=== PATIENT | male | born 1970 | race Caucasian/White ===

== ENCOUNTER 2016-11-25 23:49 | Emergency (ER) | payer SELFPAY ==
[2016-11-26] MEDS ORDERED: HYDROcodone/Acetaminophen 10/325 mg Tablet ONE (00:24)
[2016-11-26] MEDS ORDERED: Cephalexin 500 MG CAP ONE (00:25)
[2016-11-26] MEDS ORDERED: Sulfameth/Trimethoprim DS 800-160mg TAB ONE (00:25)
[2016-11-26] MEDS ORDERED: Oxymetazoline HCl 0.05% ( 15 ML ) ONE (00:25)
[2016-11-26] MEDS ORDERED: Naproxen 500 MG TAB ONE (00:25)
--- NOTE | 2016-11-26 01:08 | PICIS ---
[facility] EMERGENCY RECORD TRIAGE (TueNov 26, 2016 00:02 MHEB) TRIAGE NOTES: RIGHT NARES PAIN. (TueNov 26, 2016 00:02 MHEB) PATIENT: NAME: Rick Morales, AGE: 45, GENDER: male, : Tue1970, TIME OF GREET: TueNov 25, 2016 23:50, PREFERRED LANGUAGE: Kittitian, ETHNICITY: Not or , ECODE BILLING MAP: [facility], SSN: [id number], Zip Code: [address], KG WEIGHT: 83.91, PHONE: , , , PERSON ID: [id number], PCP: NONE. (TueNov 26, 2016 00:02 MHEB) COMPLAINT: NASAL PAIN. (TueNov 26, 2016 00:02 MHEB) ADMISSION: URGENCY: 5 Fast Track, ADMISSION SOURCE: Home, TRANSPORT: Walk-in, BED: TRIAGE. (TueNov 26, 2016 00:02 MHEB) ASSESSMENT: Assessment: SWELLING TO RIGHT SIDE OF NOSE, Symptoms began 11/23/2016 00:03. (00:03 MHEB) IMMUNIZATIONS: Flu vaccine not up to date, Tetanus not up to date. (00:03 MHEB) SIRS SCORING: Heart Rate 55-109 (0), Temp range 96.8-101.1 (0), respiratory rate 12-24 (0), Mental Status altered: no (0). (00:03 MHEB) TRIAGE SCREENING: Patient denies suicidal ideation, Patient denies presence of domestic violence. (00:03 MHEB) PROVIDERS: TRIAGE NURSE: Dunia Ye RN. (TueNov 26, 2016 00:02 MHEB) VITAL SIGNS: BP 140/90, Pulse 91, Resp 18, Temp 97.8, (Tympanic), Pain 10, O2 Sat 98, on Room Air, Time 11/26/2016 00:00. (00:00 MHEB) KNOWN ALLERGIES NKDA CURRENT MEDICATIONS No recorded medications VITAL SIGNS (00:00 MHEB) VITAL SIGNS: BP: 140/90, Pulse: 91, Resp: 18, Temp: 97.8 (Tympanic), Pain: 10, O2 sat: 98 on Room Air, Time: 11/26/2016 00:00. NURSING ASSESSMENT: ENT (00:05 MHEB) CONSTITUTIONAL: Patient arrives ambulatory, Gait steady, History obtained from patient, Patient appears comfortable, Patient cooperative, Patient alert, Oriented to person, place and time, Skin warm, Skin dry, Skin normal in color, Mucous membranes pink, Mucous membranes moist, Patient is well-groomed, Patient complains of nasal pain, pt reports pain to nasal septum for 3 days that is progressively getting worse. PAIN: burning pain, to the left nare, to bilateral nares. NURSING PROCEDURE: DISCHARGE NOTE (00:40 MHEB) DISCHARGE: Patient discharged to home, ambulating without &a-1R&a+25V*p+0X*[id number]*c202B*c15G*c2P*p-0X&a-25V&a+1R Name: Rick Morales : 1970 M45 MedRec: [id number] AcctNum: [id number] Prepared: TueNov 26, 2016 01:06 by Interface Page [address] [facility] EMERGENCY RECORD assistance, family driving, accompanied by other family member, Summary of Care printed/ provided, Discharge instructions given to patient, Simple or moderate discharge teaching performed, Prescriptions given and instructions on side effects given, Above person(s) verbalized understanding of discharge instructions and follow-up care, Patient treated and evaluated by physician. BELONGINGS: Belongings and valuables with patient at time of discharge include:, Belongings remain with patient, Valuables remain with patient. NURSING PROCEDURE: NURSE NOTES (00:33 MHEB) NURSES NOTES: Notes: pt called daughter to come pick him up. MEDICATION ADMINISTRATION SUMMARY Drug Name: Cefanex, Dose Ordered: 500 mg, Route: Oral, Status: Given, Time: 00:31 11/26/2016, Drug Name: Septra DS, Dose Ordered: 1 tab(s), Route: Oral, Status: Given, Time: 00:31 11/26/2016, Drug Name: Howe, Dose Ordered: 10-325 mg, Route: Oral, Status: Given, Time: 00:30 11/26/2016, Drug Name: Naprosyn, Dose Ordered: 500 mg, Route: Oral, Status: Given, Time: 00:30 11/26/2016, Drug Name: *Afrin (oxymetazoline), Dose Ordered: 2 puff(s), Route: Nares Both, Status: Given, Time: 00:29 11/26/2016, *Additional information available in notes, Detailed record available in Medication Service section. MEDICATION SERVICE Afrin (oxymetazoline): Order: Afrin (oxymetazoline) (oxymetazoline HCl) - Dose: 2 puff(s) : Nares Both Schedule: Now Notes: use morning and bedtime for 4 days and then just at bedtime until swelling gone Ordered by: Sunny Morales MD Entered by: Sunny Morales MD TueNov 26, 2016 00:20 , Acknowledged by: Dunia Ye RN TueNov 26, 2016 00:26 Documented as given by: Dunia Ye RN TueNov 26, 2016 00:29 Patient, Medication, Dose, Route and Time verified prior to administration. Amount given: 2 puffs, Site: Medication administered bilateral nares, Instructed to blow nose prior to administration, Correct patient, time, route, dose and medication confirmed prior to administration, Patient advised of actions and side-effects prior to administration, Allergies confirmed and medications reviewed prior to administration, Advised not to ambulate without assistance, Patient in position of comfort, Side rails up, Cart in lowest position, Family at bedside. Cefanex: Order: Cefanex (cephalexin monohydrate) - &a-1R&a+25V*p+0X*k5710L*c202B*c15G*c2P*p-0X&a-25V&a+1R Name: AndrewRick : 1970 M45 MedRec: [id number] AcctNum: [id number] Prepared: TueNov 26, 2016 01:06 by Interface Page [address] [facility] EMERGENCY RECORD Dose: 500 mg : Oral Schedule: Now Ordered by: Sunny Morales MD Entered by: Sunny Morales MD TueNov 26, 2016 00:18 , Acknowledged by: Dunia Ye RN TueNov 26, 2016 00:26 Documented as given by: Dunia Ye RN TueNov 26, 2016 00:31 Patient, Medication, Dose, Route and Time verified prior to administration. Amount given: 500mg, Site: Medication administered P.O., Correct patient, time, route, dose and medication confirmed prior to administration, Patient advised of actions and side-effects prior to administration, Allergies confirmed and medications reviewed prior to administration, Patient in position of comfort, Side rails up, Cart in lowest position, Family at bedside. Naprosyn: Order: Naprosyn (naproxen) - Dose: 500 mg : Oral Schedule: Now Ordered by: Sunny Morales MD Entered by: Sunny Morales MD TueNov 26, 2016 00:18 , Acknowledged by: Dunia Ye RN TueNov 26, 2016 00:26 Documented as given by: Dunia Ye RN TueNov 26, 2016 00:30 Patient, Medication, Dose, Route and Time verified prior to administration. Amount given: 500mg, Site: Medication administered P.O., Correct patient, time, route, dose and medication confirmed prior to administration, Patient advised of actions and side-effects prior to administration, Allergies confirmed and medications reviewed prior to administration, Patient in position of comfort, Side rails up, Cart in lowest position, Family at bedside. Howe: Order: Howe (hydrocodone bitartrate/acetaminophen) - Dose: 10-325 mg : Oral Schedule: Now Ordered by: Sunny Morales MD Entered by: Sunny Morales MD TueNov 26, 2016 00:18 , Acknowledged by: Dunia Ye RN TueNov 26, 2016 00:26 Documented as given by: Dunia Ye RN TueNov 26, 2016 00:30 Patient, Medication, Dose, Route and Time verified prior to administration. Amount given: 10-325mg, Site: Medication administered P.O., Correct patient, time, route, dose and medication confirmed prior to administration, Patient advised of actions and side-effects prior to administration, Allergies confirmed and medications reviewed prior to administration, Patient in position of comfort, Side rails up, Cart in lowest position, Family at bedside. Septra DS: Order: Septra DS (sulfamethoxazole/trimethoprim) - Dose: 1 tab(s) : Oral Schedule: Now Ordered by: Sunny Morales MD Entered by: Sunny Morales MD TueNov 26, 2016 00:18 , Acknowledged by: Dunia Ye RN TueNov 26, 2016 00:26 &a-1R&a+25V*p+0X*w2190Z*c202B*c15G*c2P*p-0X&a-25V&a+1R Name: Rick Morales : 1970 M45 MedRec: [id number] AcctNum: [id number] Prepared: TueNov 26, 2016 01:06 by Interface Page [address] [facility] EMERGENCY RECORD Documented as given by: Dunia Ye RN TueNov 26, 2016 00:31 Patient, Medication, Dose, Route and Time verified prior to administration. Amount given: 1tab, Site: Medication administered P.O., Correct patient, time, route, dose and medication confirmed prior to administration, Patient advised of actions and side-effects prior to administration, Allergies confirmed and medications reviewed prior to administration, Patient in position of comfort, Side rails up, Cart in lowest position, Family at bedside. HPI CELLULITIS (00:33 LLDO) CHIEF COMPLAINT: Denies drainage, Patient presents for evaluation of erythema, Patient presents for evaluation of pain, Patient presents for evaluation of swelling, Patient presents for evaluation of tip of the nose. just inside the left nares is what appears to be a tiny head, but the rest of the end of the nose seems to be a cellulitis, extending up into the left side of the nose with some fullness and tenderness. HISTORIAN: History provided by patient. MECHANISM: Possible mechanism cannot tell with certainty. ingrown hair? pt has had this experience once before. LOCATION: Symptoms are localized. SEVERITY: Maximum severity of symptoms severe, Currently symptoms are severe. TIME COURSE: Gradual onset of symptoms, Symptoms are worsening, are constant, started 2 days ago. ASSOCIATED WITH: No associated symptoms, No associated drainage, No associated fever, No associated nausea, No associated proximal streaking, Denies any other complaints. COMPLICATING FACTORS: No complicating factors. EXACERBATED BY: Patient's condition exacerbated by scratching. RELIEVED BY: Patient's condition relieved by nothing, Patient's condition relieved by nothing because patient has not tried anything for relief. ROS CONSTITUTIONAL: Historian reports fatigue. (00:44 LLDO) EYES: Negative eye review of systems, Historian denies eye pain, denies eye redness, denies eye discharge. (00:51 LLDO) ENT: SEE HPI. (00:44 LLDO) MUSCULOSKELETAL: Negative musculoskeletal review of systems, Historian denies arthralgias, denies fall, denies injury, denies myalgias. (00:51 LLDO) SKIN: Historian reports cellulitis, reports skin lesions. IN HPI. (00:44 LLDO) NEUROLOGIC: Negative neurologic review of systems, Historian denies confusion, denies focal weakness, denies mental status changes, denies sensory changes. (00:51 LLDO) ALLERGIC/IMMUNOLOGIC: Normal allergy/immunologic system review, Historian denies eczema, denies environmental allergies, denies food allergies. (00:51 LLDO) &a-1R&a+25V*p+0X*x6887E*c202B*c15G*c2P*p-0X&a-25V&a+1R Name: Rick Morales : 1970 M45 MedRec: [id number] AcctNum: [id number] Prepared: TueNov 26, 2016 01:06 by Interface Page [address] [facility] EMERGENCY RECORD PSYCHIATRIC: Negative psychiatric review of systems, Historian denies alcohol abuse, denies anxiety, denies depression, denies drug abuse, denies hallucinations. (00:51 LLDO) NOTES: All systems reviewed, negative except as described above. (00:44 LLDO) PAST MEDICAL HISTORY MEDICAL HISTORY: No past medical history, No past medical history,. (00:03 MHEB) MALE SURGICAL HISTORY: LT ANKLE SX. VERIFIED 11/26/16. (00:03 MHEB) PSYCHIATRIC HISTORY: No previous psychiatric history, No previous psychiatric history. (00:03 MHEB) SOCIAL HISTORY: Patient denies alcohol use, Patient denies drug use, Patient currently uses tobacco, smokes cigarettes, Patient smokes 1 pack per day, Patient currently uses tobacco, Patient smokes cigarettes, Tobacco history notes: 1 PACK PER 2 DAYS., Patient drinks socially, every week, Patient denies drug use. (00:03 MHEB) NOTES: Nursing records reviewed, Agree with nursing records, Medication list reviewed. (00:51 LLDO) PHYSICAL EXAM CONSTITUTIONAL: Vital signs reviewed, Patient afebrile, Pulse normal, Blood pressure normal, Respiratory rate normal, Patient appears non toxic, Patient appears in pain, in moderate pain distress, SEVERE WITH ANY MOVEMENT OR PALPATION, Patient alert and oriented to person, place and time. (00:45 LLDO) HEAD: Head exam included findings of head atraumatic, normocephalic. (00:45 LLDO) EYES: Eye exam normal, Eye exam included findings of eyelids normal to inspection, Pupils equally round and reactive to light, Extraocular muscles intact. (00:51 LLDO) ENT: Ear exam normal, Nose exam included findings of, see hpi, Pharynx exam normal, Uvula exam normal, Tonsil exam normal, Mouth exam normal, Sinus exam included findings of frontal sinuses normal, maxillary sinuses normal. (00:45 LLDO) NECK: Neck exam included findings of normal range of motion, Trachea midline, Thyroid normal, no meningeal signs, no cervical adenopathy, no tenderness. (00:45 LLDO) BACK: Back exam normal, Back exam included findings of normal inspection, range of motion normal. (00:51 LLDO) UPPER EXTREMITY: Upper extremity exam normal, Upper extremity exam included findings of inspection normal, Range of motion normal. (00:51 LLDO) LOWER EXTREMITY: Lower extremity exam normal, Lower extremity exam included findings of inspection normal, Range of motion normal. (00:51 LLDO) NEURO: Neuro exam normal, Neuro exam findings include patient &a-1R&a+25V*p+0X*s1567I*c202B*c15G*c2P*p-0X&a-25V&a+1R Name: Rick Morales : 1970 M45 MedRec: [id number] AcctNum: [id number] Prepared: TueNov 26, 2016 01:06 by Interface Page [address] [facility] EMERGENCY RECORD oriented to person, place and time, Speech normal, [place] coma scale 15. (00:51 LLDO) SKIN: CELLULITIS NOTED ABOVE. (00:45 LLDO) PSYCHIATRIC: Psychiatric exam normal, Psychiatric exam included findings of patient oriented to person place and time, Normal affect, Judgment normal. (00:51 LLDO) EVENTS TRANSFER: Triage to Emergency Triage. (TueNov 26, 2016 00:02 MHEB) Emergency Triage to Main ED -03. (00:04 MHEB) Removed from Emergency Main ED -03. (00:55 MHEB) PROBLEM LIST No recorded problems DIAGNOSIS (00:21 LLDO) FINAL: PRIMARY: nasal cellulitis. DISPOSITION PATIENT: Disposition Type: Discharge, Disposition: *Discharge Home. (00:21 LLDO) Patient left the department. (00:55 EB) INSTRUCTION (00:23 LLDO) DISCHARGE: FACIAL CELLULITIS. FOLLOWUP: Follow up with Primary Care Physician in 7-10 days. SPECIAL: Follow-up with your PCP. PRESCRIPTION (00:22 LLDO) Keflex: CAPSULE (HARD, SOFT, ETC.) : 500 mg : ORAL : Quantity: 1 Unit: cap(s) Route: ORAL Schedule: 3 times a day Dispense: 30 May substitute. Refills: No Refills . NOTES: No Refills. Septra DS: TABLET : 800 mg-160 mg : ORAL : Quantity: 1 Unit: tab(s) Route: ORAL Schedule: 2 times a day (before meals) Dispense: 20 May substitute. Refills: No Refills . NOTES: ^s=No Refills No Refills. Tylenol-Codeine #3: TABLET : 300 mg-30 mg : ORAL : Quantity: 1-2 Unit: tab(s) Route: ORAL Schedule: every 4 hours prn Dispense: 24 Unit: tab(s) May substitute. Refills: No Refills . NOTES: ^s=^s=No Refills No Refills No Refills. IMAGING (00:41 EB) &a-1R&a+25V*p+0X*u1973P*c202B*c15G*c2P*p-0X&a-25V&a+1R Name: Rick Morales : 1970 M45 MedRec: [id number] AcctNum: [id number] Prepared: TueNov 26, 2016 01:06 by Interface Page [address] [facility] EMERGENCY RECORD *SUPPLY CHARGE SHEET: Image captured from scanner. *DISCHARGE INSTRUCTIONS RECEIPT: Image captured from scanner. ADMIN (00:52 DO) DIGITAL SIGNATURE: MD Morales Lloyd. Mike: =MD Morales Lloyd EB=BRIAN Ye, Dunia &a-1R&a+25V*p+0X*n0309Q*c202B*c15G*c2P*p-0X&a-25V&a+1R Name: Rick Morales : 1970 5 MedRec: [id number] AcctNum: [id number] Prepared: TueNov 26, 2016 01:06 by Interface Page [address] [facility] MEDICATION RECONCILIATION You were seen in the Emergency Department on: TueNov 26, 2016 KNOWN ALLERGIES NKDA MEDICATIONS GIVEN WHILE IN THE EMERGENCY DEPARTMENT Naprosyn (naproxen) - Dose: 500 milligram(s) : Oral Howe (hydrocodone bitartrate/acetaminophen) - Dose: 10-325 milligram(s) : Oral Septra DS (sulfamethoxazole/trimethoprim) - Dose: 1 tab(s) : Oral Cefanex (cephalexin monohydrate) - Dose: 500 milligram(s) : Oral Afrin (oxymetazoline) (oxymetazoline HCl) - Dose: 2 puff(s) : Nares Both Notes from the emergency department Reviewed with patient PRESCRIPTIONS (3) Printed (3) Keflex : CAPSULE (HARD, SOFT, ETC.) : 500 mg : ORAL Quantity: 1, Unit: cap(s), Route: ORAL, Schedule: 3 times a day, Dispense: 30 Septra DS : TABLET : 800 mg-160 mg : ORAL Quantity: 1, Unit: tab(s), Route: ORAL, Schedule: 2 times a day (before meals), Dispense: 20 &a-1R&a+25V*p+0X*l9442T*c202B*c15G*c2P*p-0X&a-25V&a+1R Name: Rick Morales : 1970 M45 MedRec: [id number] AcctNum: [id number] Prepared: TueNov 26, 2016 01:06 by Interface [facility]
== END 2016-11-26 00:40 | disposition home or self-care (01) ==
LOC: MADERS 23:49
DX: J34.0 Abscess, furuncle and carbuncle of nose (principal); F17.210 Nicotine dependence, cigarettes, uncomplicated
CPT/HCPCS: 99283